=== PATIENT | female | born 1990 | race Caucasian/White ===

== ENCOUNTER 2016-10-05 05:39 | Emergency (ER) | payer MEDICAID ==
[~2016-10-05] VITALS: Ht 139.7 cm; Wt 40.8 kg
[2016-10-05 05:39] VITALS: BP_SYST 113
[~2016-10-05 05:39] MED LIST: FERR-57 PO; FLO220 INH; HYDR-1189 PO; VENL75CA PO
[2016-10-05] MEDS ORDERED: DEXAMETHASONE SOD PHOSPHATE 10 MG/ML VIAL IM ONE (06:15)
[2016-10-05 06:34] VITALS: BP_SYST 118
== END 2016-10-05 06:34 | disposition home or self-care (01) ==
LOC: SED 05:39
DX: J02.9 Acute pharyngitis, unspecified (principal); R51 Headache; M06.9 Rheumatoid arthritis, unspecified; J45.909 Unspecified asthma, uncomplicated; Z88.0 Allergy status to penicillin; Z88.2 Allergy status to sulfonamides; Z88.1 Allergy status to other antibiotic agents
CPT/HCPCS: 99283; J1100

== ENCOUNTER 2017-03-05 14:22 | Emergency (ER) | payer MEDICAID ==
[~2017-03-05] VITALS: Ht 137.2 cm; Wt 44.5 kg
[2017-03-05 14:22] VITALS: BP 118/62; PULSE 97; RESP 20; TEMP 98.1; O2SAT 100
[~2017-03-05 14:22] MED LIST changes: +BIRTH CONTROL; +LEVO500T20 PO; +MAGN400O4 PO; +METO-290 PO; +PARO40TA45 PO; +POLY17PO4 PO; +PRO40 PO; +TRAM50TA92 PO
--- NOTE | 2017-03-05 14:28 | NUR ---
Pt placed to ER waiting room in stable condition.
--- NOTE | 2017-03-05 15:15 | NUR ---
ER examining patient.
--- NOTE | 2017-03-05 15:35 | NUR ---
ambulated to bed 3
[2017-03-05 15:56] LABS: BILIRUBIN,URINE NEGATIVE (NEGATIVE); BLOOD, URINE NEGATIVE (NEGATIVE); CLARITY/URINE CLEAR (CLEAR); COLOR,URINE YELLOW (YELLOW); GLUCOSE,URINE NEGATIVE (NEGATIVE); KETONES,URINE NEGATIVE (NEGATIVE); LEUKOCYTE ESTERASE ,URINE NEGATIVE (NEGATIVE); NITRITE, URINE NEGATIVE (NEGATIVE); PROTEIN URINE NEGATIVE (NEGATIVE); UROBILINOGEN,URINE 0.2 (0.2-1.0)
[2017-03-05] MEDS ORDERED: NACL 0.9% 1,000 ML IV ONE (16:00)
--- NOTE | 2017-03-05 16:15 | NUR ---
# 20 gauge angiocath placed to LAC. Use of asceptic technique. Opsite placed over site. Blood return noted. Blood for lab drawn from site. Flushed with 10 cc of normal saline. No evidence of infiltration noted. Patient tolerated well.
--- NOTE | 2017-03-05 16:30 | NUR ---
DR EMANUEL WENT BACK AND TALKED TO PT FOR MEDS.
[2017-03-05 16:59] LABS: BASOPHILS % (AUTO) 0.4 % (0.0-2.0); EOSINOPHILS # (AUTO) 0.1 K/uL (0.0-0.4); EOSINOPHILS % (AUTO) 0.5 % (0.0-4.0); HEMATOCRIT 40.7 % (36-48); HEMOGLOBIN 13.4 g/dL (12.0-16.0); LYMPHOCYTES # (AUTO) 1.8 K/uL (1.0-5.5); LYMPHOCYTES % (AUTO) 17.2 % (20.5-51.5); MEAN CORPUSCULAR HEMOGLOBIN 28 pg (27-31); MEAN CORPUSCULAR HGB CONC 33 % (32-36); MEAN CORPUSCULAR VOLUME 86 fL (79.0-98.0); MONOCYTES # (AUTO) 0.5 K/uL (0.0-1.0); MONOCYTES % (AUTO) 4.3 % (1.7-9.3); NEUTROPHILS # (AUTO) 8.2 K/uL (1.8-7.7); NEUTROPHILS % (AUTO) 77.6 % (40.0-70.0); PLATELET COUNT (AUTO) 248 K/uL (130-430); RED BLOOD CELL COUNT(AUTO) 4.74 MIL/uL (4.2-6.2); RED CELL DISTRIBUTION WIDTH 12.3 % (9.0-15.0); WHITE BLOOD COUNT (AUTO) 10.6 K/uL (4.8-10.8)
[2017-03-05 17:05] LABS: CALCIUM 9.5 mg/dL (8.4-11.0); CREATININE 0.7 mg/dL (0.55-1.30); POTASSIUM 3.7 mmol/L (3.5-5.1)
[2017-03-05 17:09] LABS: ALBUMIN 4.1 g/dL (3.4-4.8); TOTAL BILIRUBIN 0.3 mg/dL (0.0-1.0)
[2017-03-05] MEDS ORDERED: MAGNESIUM CITRATE 300 ML ORAL SOLUTION PO ONE (17:15)
[2017-03-05 17:30] VITALS: BP 128/72; PULSE 84; RESP 20; TEMP 98.2; O2SAT 98
--- NOTE | 2017-03-05 17:30 | NUR ---
Patient given written and verbal discharge instructions and verbalizes understanding. ER MD discussed with patient the results and treatment provided. Patient in stable condition. ID arm band removed. IV catheter removed intact and dressing applied, no active bleeding. No Rx Given. Patient educated on pain management and to follow up with PMD. Pain Scale 1/10. Opportunity for questions provided and answered.
== END 2017-03-05 17:30 | disposition home or self-care (01) ==
LOC: SED 14:22
DX: K59.00 Constipation, unspecified (principal); J45.909 Unspecified asthma, uncomplicated; M06.9 Rheumatoid arthritis, unspecified; Z90.710 Acquired absence of both cervix and uterus; Z88.0 Allergy status to penicillin; Z88.2 Allergy status to sulfonamides; Z88.1 Allergy status to other antibiotic agents
CPT/HCPCS: 36415; 74020; 80053; 81003; 81025; 83690; 85025; 96360; 99285; J7030

== ENCOUNTER 2017-09-24 07:57 | Emergency (ER) | payer MEDICAID ==
[~2017-09-24] VITALS: Ht 137.2 cm; Wt 40.4 kg
[~2017-09-24 07:57] MED LIST changes: -BIRTH CONTROL; -LEVO500T20 PO; -MAGN400O4 PO; -METO-290 PO; -PARO40TA45 PO; -POLY17PO4 PO; -PRO40 PO; -TRAM50TA92 PO
[2017-09-24 08:03] VITALS: BP_SYST 128
[2017-09-24 08:38] VITALS: BP_SYST 121
== END 2017-09-24 08:39 | disposition home or self-care (01) ==
LOC: SED 07:57
DX: J02.9 Acute pharyngitis, unspecified (principal); J40 Bronchitis, not specified as acute or chronic; N12 Tubulo-interstitial nephritis, not specified as acute or chronic; Z88.0 Allergy status to penicillin; Z88.2 Allergy status to sulfonamides; Z88.1 Allergy status to other antibiotic agents; Z88.8 Allergy status to other drugs, medicaments and biological substances; Z79.899 Other long term (current) drug therapy
CPT/HCPCS: 99283

== ENCOUNTER 2017-09-24 21:07 | Emergency (ER) | payer MEDICAID ==
[~2017-09-24] VITALS: Ht 137.2 cm; Wt 41.3 kg
[2017-09-24 21:23] VITALS: BP_SYST 119
[2017-09-24 22:05] LABS: BILIRUBIN,URINE NEGATIVE (NEGATIVE); BLOOD, URINE NEGATIVE (NEGATIVE); CLARITY/URINE CLEAR (CLEAR); COLOR,URINE YELLOW (YELLOW); GLUCOSE,URINE NEGATIVE (NEGATIVE); KETONES,URINE NEGATIVE (NEGATIVE); LEUKOCYTE ESTERASE ,URINE NEGATIVE (NEGATIVE); NITRITE, URINE NEGATIVE (NEGATIVE); PH,URINE 6.5 (5.0-8.0); PROTEIN URINE NEGATIVE (NEGATIVE); UROBILINOGEN,URINE 0.2 (0.2-1.0)
[2017-09-24 22:40] VITALS: BP_SYST 123
== END 2017-09-24 22:40 | disposition home or self-care (01) ==
LOC: SED 21:07
DX: G89.29 Other chronic pain (principal); M54.5 Low back pain; J45.909 Unspecified asthma, uncomplicated; M06.9 Rheumatoid arthritis, unspecified; M79.7 Fibromyalgia; Z90.710 Acquired absence of both cervix and uterus; Z88.0 Allergy status to penicillin; Z88.2 Allergy status to sulfonamides; Z88.1 Allergy status to other antibiotic agents; Z88.8 Allergy status to other drugs, medicaments and biological substances; Z79.899 Other long term (current) drug therapy
CPT/HCPCS: 81003; 81025; 99283

== ENCOUNTER 2018-08-20 07:41 | Emergency (ER) | payer MEDICAID ==
[~2018-08-20] VITALS: Ht 139.7 cm; Wt 41.7 kg
[2018-08-20 07:47] VITALS: BP_SYST 131
[2018-08-20 08:39] LABS: BILIRUBIN,URINE NEGATIVE (NEGATIVE); CLARITY/URINE CLEAR (CLEAR); COLOR,URINE YELLOW (YELLOW); GLUCOSE,URINE NEGATIVE (NEGATIVE); KETONES,URINE NEGATIVE (NEGATIVE); LEUKOCYTE ESTERASE ,URINE NEGATIVE (NEGATIVE); NITRITE, URINE NEGATIVE (NEGATIVE); PH,URINE 5.5 (5.0-8.0); PROTEIN URINE TRACE (NEGATIVE); UROBILINOGEN,URINE 0.2 (0.2-1.0)
[2018-08-20 08:54] LABS: BLOOD, URINE TRACE (NEGATIVE)
[2018-08-20 09:01] LABS: BACTERIA,URINE RARE /HPF (None Seen); WBC,URINE 0-3 /HPF (0-3)
[2018-08-20 09:25] VITALS: BP_SYST 131
== END 2018-08-20 09:25 | disposition home or self-care (01) ==
LOC: SED 07:41
DX: N76.0 Acute vaginitis (principal); N30.90 Cystitis, unspecified without hematuria; B96.89 Other specified bacterial agents as the cause of diseases classified elsewhere; M79.7 Fibromyalgia; J45.909 Unspecified asthma, uncomplicated; Z90.710 Acquired absence of both cervix and uterus; Z88.0 Allergy status to penicillin; Z88.2 Allergy status to sulfonamides; Z88.8 Allergy status to other drugs, medicaments and biological substances; Z79.899 Other long term (current) drug therapy
CPT/HCPCS: 81000-TC; 99283

== ENCOUNTER 2018-11-08 18:37 | Emergency (ER) | payer MEDICAID ==
[~2018-11-08] VITALS: Ht 139.7 cm; Wt 40.8 kg
[2018-11-08 18:37] VITALS: BP_SYST 148
--- NOTE | 2018-11-08 18:37 | NUR ---
BROUGHT BACK TO BED #8 AND TRIAGED. REPORT GIVEN TO FRANKLIN
--- NOTE | 2018-11-08 18:40 | NUR ---
ER Dr. Valencia at bedside examining patient.
--- NOTE | 2018-11-08 18:47 | NUR ---
Pt AAOx4 c/o L sided heart palpitations x 3 days. Pt took 3 norcos for fibromyalgia and RA. Skin pink dry and warm, breathing even and unlabored. No other injuries/complaints per pt/noted. Will continue to monitor.
[2018-11-08] MEDS ORDERED: LORazepam 1 MG TABLET PO ONE (19:00)
--- NOTE | 2018-11-08 19:13 | NUR ---
Pt refused 1mg Ativan PO. Pt states "Last time I had benadryl and dilaudid in the hospital and I coded." Dr. Valencia notified.
[2018-11-08 19:35] LABS: BASOPHILS # (AUTO) 0.1 K/uL (0.0-0.2); BASOPHILS % (AUTO) 0.8 % (0.0-2.0); EOSINOPHILS # (AUTO) 0.1 K/uL (0.0-0.4); EOSINOPHILS % (AUTO) 0.8 % (0.0-4.0); HEMATOCRIT 40.2 % (36-48); HEMOGLOBIN 13.5 g/dL (12.0-16.0); LYMPHOCYTES % (AUTO) 31.6 % (20.5-51.5); MEAN CORPUSCULAR HEMOGLOBIN 30 pg (27-31); MEAN CORPUSCULAR HGB CONC 34 % (32-36); MEAN CORPUSCULAR VOLUME 89 fL (79.0-98.0); MONOCYTES # (AUTO) 0.3 K/uL (0.0-1.0); MONOCYTES % (AUTO) 4.8 % (1.7-9.3); NEUTROPHILS # (AUTO) 3.9 K/uL (1.8-7.7); PLATELET COUNT (AUTO) 269 K/uL (130-430); RED BLOOD CELL COUNT(AUTO) 4.54 MIL/uL (4.2-6.2); WHITE BLOOD COUNT (AUTO) 6.3 K/uL (4.8-10.8)
[2018-11-08 19:55] LABS: CALCIUM 9.4 mg/dL (8.4-11.0); CREATININE 0.65 mg/dL (0.55-1.30); POTASSIUM 3.3 mmol/L (3.5-5.1)
[2018-11-08 20:00] LABS: TOTAL BILIRUBIN 0.2 mg/dL (0.0-1.0)
--- NOTE | 2018-11-08 20:08 | NUR ---
Pt resting comfortably in bed with no signs of distress. Will continue to monitor.
--- NOTE | 2018-11-08 21:05 | NUR ---
ER Dr. Mcclure at bedside examining patient.
--- NOTE | 2018-11-08 21:26 | NUR ---
Patient given written and verbal discharge instructions and verbalizes understanding. ER MD Mcclure discussed with patient the results and treatment provided. Patient in stable condition. ID arm band removed. No Rx given. Patient educated on pain management and to follow up with PMD. Pain Scale 0. Opportunity for questions provided and answered. Medication side effect fact sheet provided.
== END 2018-11-08 21:26 | disposition home or self-care (01) ==
LOC: SED 18:37
DX: F41.9 Anxiety disorder, unspecified (principal); J45.909 Unspecified asthma, uncomplicated; R03.0 Elevated blood-pressure reading, without diagnosis of hypertension; M79.7 Fibromyalgia; F17.200 Nicotine dependence, unspecified, uncomplicated; Z71.6 Tobacco abuse counseling; Z88.0 Allergy status to penicillin; Z88.1 Allergy status to other antibiotic agents; Z88.2 Allergy status to sulfonamides; Z88.8 Allergy status to other drugs, medicaments and biological substances; Z79.899 Other long term (current) drug therapy
CPT/HCPCS: 36415; 80053; 85025; 93005; 99284

== ENCOUNTER 2019-11-09 18:20 | Emergency (ER) | payer MEDICAID ==
[~2019-11-09] VITALS: Ht 139.7 cm; Wt 38.1 kg
[2019-11-09 19:07] VITALS: BP_SYST 119
[2019-11-09] MEDS ORDERED: CYCL10TA9 PO (19:07)
--- NOTE | 2019-11-09 19:13 | NUR ---
PATIENT RETURNED TO WAITING ROOM PENDING BED ASSIGNMENT
--- NOTE | 2019-11-09 19:55 | NUR ---
Patient to ER bed DAVIS to gown for evaluation. Side rails up. Report given to FAUSTINO CARMEN.
--- NOTE | 2019-11-09 19:59 | NUR ---
pt sitting up in [facility]. No distress noted. A/O
--- NOTE | 2019-11-09 20:00 | NUR ---
ER Dr. BULLARD at bedside examining patient.
--- NOTE | 2019-11-09 20:26 | NUR ---
Patient given written and verbal discharge instructions and verbalizes understanding. ER MD discussed with patient the results and treatment provided. Patient in stable condition. ID arm band removed. Rx of MOTRIN given. Patient educated on pain management and to follow up with PMD. Pain Scale 6/10. Opportunity for questions provided and answered. Medication side effect fact sheet provided.
[2019-11-09 20:28] VITALS: BP_SYST 112
== END 2019-11-09 20:26 | disposition home or self-care (01) ==
LOC: SED 18:20
DX: S16.1XXA Strain of muscle, fascia and tendon at neck level, initial encounter (principal); R51 Headache; J45.909 Unspecified asthma, uncomplicated; N28.9 Disorder of kidney and ureter, unspecified; Z90.710 Acquired absence of both cervix and uterus; Z88.0 Allergy status to penicillin; Z88.1 Allergy status to other antibiotic agents; Z88.2 Allergy status to sulfonamides; X50.3XXA Overexertion from repetitive movements, initial encounter; Y93.89 Activity, other specified; Y92.89 Other specified places as the place of occurrence of the external cause; Y99.8 Other external cause status
CPT/HCPCS: 99282

== ENCOUNTER 2020-10-17 16:55 | Emergency (ER) | payer MEDICAID ==
[~2020-10-17] VITALS: Ht 139.7 cm; Wt 36.3 kg
[~2020-10-17 16:55] MED LIST changes: +CYCL10TA9 PO; -FERR-57 PO; -FLO220 INH; -HYDR-1189 PO; +HYDR-3919 PO; -VENL75CA PO
[2020-10-17 17:07] VITALS: BP_SYST 141
[2020-10-17 17:26] LABS: BILIRUBIN,URINE NEGATIVE (NEGATIVE); BLOOD, URINE 1+ (NEGATIVE); CLARITY/URINE CLEAR (CLEAR); COLOR,URINE YELLOW (YELLOW); GLUCOSE,URINE NEGATIVE (NEGATIVE); KETONES,URINE NEGATIVE (NEGATIVE); LEUKOCYTE ESTERASE ,URINE NEGATIVE (NEGATIVE); NITRITE, URINE NEGATIVE (NEGATIVE); PROTEIN URINE NEGATIVE (NEGATIVE); UROBILINOGEN,URINE 0.2 (0.2-1.0)
[2020-10-17 17:40] LABS: BACTERIA,URINE None Seen /HPF (None Seen); RBC,URINE 0-3 /HPF (0-3); WBC,URINE NONE SEEN /HPF (0-3)
[2020-10-17 17:41] LABS: MUCUS,URINE None Seen /LPF (None Seen)
[2020-10-17] MEDS ORDERED: ONDANSETRON 4 MG ODT TAB PO ONE ×2 (17:45→20:30)
[2020-10-17] MEDS ORDERED: HYDROcodone/ACETAMIN 5-325 MG TAB (NORCO/ VICODIN) PO ONE ×2 (17:45→20:30)
[2020-10-17 18:06] LABS: HEMOGLOBIN 13.9 g/dL (12.0-16.0); NEUTROPHILS # (AUTO) 8.4 K/uL (1.8-7.7); RED CELL DISTRIBUTION WIDTH 12.9 % (9.0-15.0)
[2020-10-17 18:13] LABS: CALCIUM 8.9 mg/dL (8.4-11.0); CREATININE 0.75 mg/dL (0.55-1.30); POTASSIUM 3.5 mmol/L (3.5-5.1)
[2020-10-17 18:14] LABS: BASOPHILS % (AUTO) 0.4 % (0.0-2.0); EOSINOPHILS % (AUTO) 0.2 % (0.0-4.0); HEMATOCRIT 40.7 % (36-48); LYMPHOCYTES # (AUTO) 1.7 K/uL (1.0-5.5); MEAN CORPUSCULAR HEMOGLOBIN 31 pg (27-31); MEAN CORPUSCULAR HGB CONC 34 % (32-36); MEAN CORPUSCULAR VOLUME 89 fL (79.0-98.0); MONOCYTES # (AUTO) 0.4 K/uL (0.0-1.0); MONOCYTES % (AUTO) 3.8 % (1.7-9.3); NEUTROPHILS % (AUTO) 79.6 % (40.0-70.0); PLATELET COUNT (AUTO) 284 K/uL (130-430); RED BLOOD CELL COUNT(AUTO) 4.56 MIL/uL (4.2-6.2); WHITE BLOOD COUNT (AUTO) 10.5 K/uL (4.8-10.8)
[2020-10-17 18:19] LABS: ALBUMIN 4.2 g/dL (3.4-4.8); TOTAL BILIRUBIN 0.3 mg/dL (0.0-1.0)
[2020-10-17] MEDS ORDERED: ONDA-8 TL (20:28)
[2020-10-17] MEDS ORDERED: ONDANSETRON 4 MG ODT TAB ONE (20:29)
[2020-10-17 20:50] VITALS: BP_SYST 141
== END 2020-10-17 20:51 | disposition home or self-care (01) ==
LOC: SED 16:55
DX: K59.00 Constipation, unspecified (principal); R11.10 Vomiting, unspecified; J45.909 Unspecified asthma, uncomplicated; Z88.0 Allergy status to penicillin; Z88.1 Allergy status to other antibiotic agents; Z88.8 Allergy status to other drugs, medicaments and biological substances
CPT/HCPCS: 36415; 74021; 80053; 81000; 81025; 83605; 85025; 87086; 99284; Q0162

== ENCOUNTER 2021-05-04 09:33 | Emergency (ER) | payer MEDICAID ==
[~2021-05-04] VITALS: Ht 139.7 cm; Wt 37.6 kg
[~2021-05-04 09:33] MED LIST changes: +ONDA-8 TL
[2021-05-04 09:40] VITALS: BP_SYST 117
[2021-05-04] MEDS ORDERED: ONDANSETRON HCL 4 MG/2 ML VIAL IVP ONE (10:00)
[2021-05-04] MEDS ORDERED: MORPHINE 2 MG/ML INJ. SYRINGE IVP ONE (10:00)
[2021-05-04] MEDS ORDERED: NACL 0.9% 1,000 ML IV ONE (10:00)
[2021-05-04 10:07] LABS: BASOPHILS % (AUTO) 0.6 % (0.0-2.0); EOSINOPHILS % (AUTO) 0.3 % (0.0-4.0); HEMATOCRIT 40.7 % (36-48); HEMOGLOBIN 13.8 g/dL (12.0-16.0); LYMPHOCYTES # (AUTO) 1.2 K/uL (1.0-5.5); LYMPHOCYTES % (AUTO) 19.3 % (20.5-51.5); MEAN CORPUSCULAR HEMOGLOBIN 29 pg (27-31); MEAN CORPUSCULAR HGB CONC 34 % (32-36); MEAN CORPUSCULAR VOLUME 86 fL (79.0-98.0); MONOCYTES # (AUTO) 0.2 K/uL (0.0-1.0); MONOCYTES % (AUTO) 3.3 % (1.7-9.3); NEUTROPHILS # (AUTO) 4.9 K/uL (1.8-7.7); NEUTROPHILS % (AUTO) 76.5 % (40.0-70.0); PLATELET COUNT (AUTO) 306 K/uL (130-430); RED BLOOD CELL COUNT(AUTO) 4.74 MIL/uL (4.2-6.2); RED CELL DISTRIBUTION WIDTH 13.8 % (9.0-15.0); WHITE BLOOD COUNT (AUTO) 6.4 K/uL (4.8-10.8)
[2021-05-04 10:13] LABS: BILIRUBIN,URINE NEGATIVE (NEGATIVE); CLARITY/URINE CLEAR (CLEAR); COLOR,URINE YELLOW (YELLOW); GLUCOSE,URINE NEGATIVE (NEGATIVE); KETONES,URINE NEGATIVE (NEGATIVE); LEUKOCYTE ESTERASE ,URINE NEGATIVE (NEGATIVE); NITRITE, URINE NEGATIVE (NEGATIVE); PH,URINE 5.5 (5.0-8.0); PROTEIN URINE NEGATIVE (NEGATIVE); UROBILINOGEN,URINE 0.2 (0.2-1.0)
[2021-05-04 10:15] LABS: BLOOD, URINE TRACE (NEGATIVE)
[2021-05-04 10:20] LABS: CALCIUM 8.4 mg/dL (8.4-11.0); CREATININE 0.75 mg/dL (0.55-1.30); POTASSIUM 3.5 mmol/L (3.5-5.1)
[2021-05-04 10:25] LABS: ALBUMIN 4.5 g/dL (3.4-4.8); TOTAL BILIRUBIN 0.3 mg/dL (0.0-1.0)
[2021-05-04 10:49] LABS: WBC,URINE 0-3 /HPF (0-3)
[2021-05-04 10:50] LABS: BACTERIA,URINE FEW /HPF (None Seen); MUCUS,URINE 1+ /LPF (None Seen)
[2021-05-04] MEDS ORDERED: MORPHINE 4 MG INJ. 4 MG/ML VIAL IVP ONE (11:15)
[2021-05-04] MEDS ORDERED: HYDROcodone/ACETAMIN 5-325 MG TAB (NORCO/ VICODIN) PO ONE (11:30)
[2021-05-04] MEDS ORDERED: DICY10CA13 PO (12:13)
[2021-05-04] MEDS ORDERED: DICYCLOMINE HCL 10 MG CAPSULE PO ONE (12:15)
[2021-05-04 12:32] VITALS: BP_SYST 121
== END 2021-05-04 12:32 | disposition home or self-care (01) ==
LOC: SED 09:33
DX: N83.201 Unspecified ovarian cyst, right side (principal); J45.909 Unspecified asthma, uncomplicated; Z88.0 Allergy status to penicillin; Z88.8 Allergy status to other drugs, medicaments and biological substances; Z79.899 Other long term (current) drug therapy
CPT/HCPCS: 36415; 74177; 76376; 80053; 81000; 81025; 83690; 85025; 96361; 96374; 96375; 99285; J2270; J2405; J7030; Q9967

== ENCOUNTER 2022-11-26 16:19 | Emergency (ER) | payer MEDICAID ==
[~2022-11-26] VITALS: Ht 137.2 cm; Wt 34.5 kg
[~2022-11-26 16:19] MED LIST changes: +CYCL10TA25 PO; -CYCL10TA9 PO; +DICY10CA13 PO
[2022-11-26 16:41] VITALS: BP_SYST 115
--- NOTE | 2022-11-26 16:59 | NUR ---
Urine specimen collected and analyzed in ER. Results given to ER .
[2022-11-26 17:05] LABS: BILIRUBIN,URINE NEGATIVE (NEGATIVE); CLARITY/URINE CLEAR (CLEAR); COLOR,URINE YELLOW (YELLOW); GLUCOSE,URINE NEGATIVE (NEGATIVE); KETONES,URINE NEGATIVE (NEGATIVE); LEUKOCYTE ESTERASE ,URINE NEGATIVE (NEGATIVE); NITRITE, URINE NEGATIVE (NEGATIVE); PROTEIN URINE NEGATIVE (NEGATIVE); UROBILINOGEN,URINE 0.2 (0.2-1.0)
[2022-11-26 17:08] LABS: BLOOD, URINE TRACE (NEGATIVE)
[2022-11-26 17:12] LABS: BACTERIA,URINE FEW /HPF (None Seen); MUCUS,URINE None Seen /LPF (None Seen); RBC,URINE 0-3 /HPF (0-3); WBC,URINE 0-3 /HPF (0-3)
--- NOTE | 2022-11-26 17:27 | NUR ---
[facility]NER [facility]T BEDSIDE ASSESSING PT
--- NOTE | 2022-11-26 17:28 | NUR ---
32 yo/F w c/o r flank pain x2 days. denies fevers, chills, n/v/d, sob. pt took norco w/o relief. pmh: endometriosis, hernial repair, hysterectomy
[2022-11-26 17:48] VITALS: BP_SYST 115
--- NOTE | 2022-11-26 17:48 | NUR ---
Patient given written and verbal discharge instructions and verbalizes understanding. ER MD discussed with patient the results and treatment provided. Patient in stable condition. ID arm band removed. IV catheter removed intact and dressing applied, no active bleeding. Patient educated on pain management and to follow up with PMD. Pain Scale . Opportunity for questions provided and answered.
== END 2022-11-26 17:48 | disposition home or self-care (01) ==
LOC: SED 16:19
DX: R10.30 Lower abdominal pain, unspecified (principal); R11.0 Nausea; J45.909 Unspecified asthma, uncomplicated; Z88.0 Allergy status to penicillin; Z88.1 Allergy status to other antibiotic agents; Z88.2 Allergy status to sulfonamides; Z88.6 Allergy status to analgesic agent; Z79.899 Other long term (current) drug therapy
CPT/HCPCS: 81000; 81025; 99283

== ENCOUNTER 2022-11-29 12:00 | Emergency (ER) | payer MEDICAID ==
[~2022-11-29] VITALS: Ht 137.2 cm; Wt 34.0 kg
[2022-11-29 12:11] VITALS: RESP 16; TEMP 98.2; O2SAT 98
[2022-11-29 12:59] LABS: BILIRUBIN,URINE NEGATIVE (NEGATIVE); CLARITY/URINE CLEAR (CLEAR); COLOR,URINE YELLOW (YELLOW); GLUCOSE,URINE NEGATIVE (NEGATIVE); KETONES,URINE NEGATIVE (NEGATIVE); LEUKOCYTE ESTERASE ,URINE NEGATIVE (NEGATIVE); NITRITE, URINE NEGATIVE (NEGATIVE); PROTEIN URINE TRACE (NEGATIVE); UROBILINOGEN,URINE 0.2 (0.2-1.0)
[2022-11-29 13:02] LABS: BLOOD, URINE TRACE (NEGATIVE)
[2022-11-29 13:04] LABS: BASOPHILS % (AUTO) 0.6 % (0.0-2.0); EOSINOPHILS % (AUTO) 0.1 % (0.0-4.0); HEMATOCRIT 36.9 % (36-48); HEMOGLOBIN 12.4 g/dL (12.0-16.0); LYMPHOCYTES # (AUTO) 1.3 K/uL (1.0-5.5); MEAN CORPUSCULAR HEMOGLOBIN 30 pg (27-31); MEAN CORPUSCULAR HGB CONC 34 % (32-36); MEAN CORPUSCULAR VOLUME 89 fL (79.0-98.0); MONOCYTES # (AUTO) 0.3 K/uL (0.0-1.0); MONOCYTES % (AUTO) 4.3 % (1.7-9.3); NEUTROPHILS # (AUTO) 5.8 K/uL (1.8-7.7); PLATELET COUNT (AUTO) 344 K/uL (130-430); RED BLOOD CELL COUNT(AUTO) 4.17 MIL/uL (4.2-6.2); RED CELL DISTRIBUTION WIDTH 12.4 % (9.0-15.0); WHITE BLOOD COUNT (AUTO) 7.5 K/uL (4.8-10.8)
[2022-11-29 13:07] LABS: WBC,URINE 0-3 /HPF (0-3)
[2022-11-29 13:08] LABS: BACTERIA,URINE RARE /HPF (None Seen)
[2022-11-29 13:16] LABS: CALCIUM 8.9 mg/dL (8.4-11.0); CREATININE 0.67 mg/dL (0.55-1.30)
[2022-11-29 13:20] LABS: ALBUMIN 3.8 g/dL (3.4-4.8); TOTAL BILIRUBIN 0.3 mg/dL (0.0-1.0)
[2022-11-29] MEDS ORDERED: IBUP-1969 PO (14:53)
[2022-11-29 15:04] VITALS: BP_SYST 115; PULSE 65; RESP 16; TEMP 98.2; O2SAT 98
== END 2022-11-29 15:04 | disposition home or self-care (01) ==
LOC: SED 12:00
DX: M54.50 Low back pain, unspecified (principal); R10.9 Unspecified abdominal pain; R11.0 Nausea; J45.909 Unspecified asthma, uncomplicated; Z88.0 Allergy status to penicillin; Z88.1 Allergy status to other antibiotic agents; Z88.2 Allergy status to sulfonamides; Z88.6 Allergy status to analgesic agent; Z79.899 Other long term (current) drug therapy
CPT/HCPCS: 36415; 76376; 80053; 81000; 81025; 82150; 83605; 83690; 84703; 85025; 99284